=== PATIENT | female | born 1945 | race American Indian/Alaskan Native ===

== ENCOUNTER 2019-06-04 12:09 | Emergency (ER) | payer MEDICARE ==
[2019-06-04 13:25] VITALS: BP 129/76
--- NOTE | 2019-06-04 13:25 | Event Note ---
ED Screening Note ED Screening Note: generalized abd pain for two days no appetite +nausea no vomiting, no diarrhea normal bm yesterday PMHx DM no allergies to meds This initial assessment/diagnostic orders/clinical plan/treatment(s) is/are subject to change based on patients health status, clinical progression and re- assessment by fellow clinical providers in the ED. Further treatment and workup at subsequent clinical providers discretion. Patient/guardian urged not to elope from the ED as their condition may be serious if not clinically assessed and managed. Initial orders include: labs, UA, XR abd
[2019-06-04 14:07] LABS: Basophils % (Auto) 0.6 % (0.0-1.8); Eosinophils # (Auto) 0.1 K/mm3 (0.0-0.4); Eosinophils % (Auto) 1.6 % (0.0-4.3); Hematocrit 38.2 % (30.3-42.9); Hemoglobin 12.7 gm/dl (10.1-14.3); Lymphocytes # (Auto) 2.2 K/mm3 (1.2-5.4); Lymphocytes % (Auto) 26.2 % (13.4-35.0); Mean Corpuscular HGB Conc 33 % (30-34); Mean Corpuscular Volume 80 fl (79-97); Monocytes # (Auto) 0.6 K/mm3 (0.0-0.8); Monocytes % (Auto) 7.3 % (0.0-7.3); Platelet Count 380 K/mm3 (140-440); Red Blood Count 4.78 M/mm3 (3.65-5.03); Red Cell Distribution Width 14.4 % (13.2-15.2)
[2019-06-04 14:14] LABS: Bilirubin,Urine NEG (Negative); Blood,Urine NEG (Negative); Color,Urine Yellow (Yellow); Mucus,Urine FEW /HPF; Protein,Urine <15 mg/dL mg/dL (Negative); Urobilinogen,Urine < 2.0 mg/dL (<2.0)
--- NOTE | 2019-06-04 14:21 | XRay Report ---
ABDOMEN FLAT AND UPRIGHT HISTORY: abd pain COMPARISON: None. TECHNIQUE: Supine and upright radiographs of the abdomen obtained. FINDINGS: Bowel: Nonobstructive bowel pattern. No abnormal air-fluid level. A large volume of stool throughout the colon. No distended small bowel. No free intraperitoneal air. Calcifications: No suspicious calcifications. Osseous Structures: Changes in the right femoral head suggest avascular necrosis. No fracture. Additional findings: Degenerative change in the spine. IMPRESSION: 1. Abundant stool and no bowel obstruction or evidence of perforation. 2. 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 Signer Name: Keron Mccray MD Signed: 06/04/2019 2:17 PM Workstation Name: [id number]
[2019-06-04 14:28] LABS: Albumin 4.4 g/dL (3.9-5); Calcium 10.8 mg/dL (8.4-10.2)
[2019-06-04] MEDS ORDERED: NACL 0.9% 1000 ML 1,000 ML IV ONE (15:47)
[2019-06-04] MEDS ORDERED: MORPHINE IV ONE (15:47)
[2019-06-04] MEDS ORDERED: ZOFRAN IV ONE (15:47)
--- NOTE | 2019-06-04 17:08 | Emergency Department Report ---
ED Abdominal Pain HPI - General Chief Complaint: Abdominal Pain Stated Complaint: VOMIT/WEAK/STOMACH PAIN Time Seen by Provider: 06/04/19 13:23 Source: patient Mode of arrival: Ambulatory Limitations: No Limitations - History of Present Illness Initial Comments: This is a 72-year-old female nontoxic, well nourished in appearance, no acute signs of distress presents to the ED with c/o of nausea and vomiting and abdominal pain 2 weeks. Patient describes vomiting as food content and yellow gastric acid. Patient describes abdominal pain as cramping and aching with level of 3/10 diffuse. Patient denies chest pain, short of breath, fever, chills, headache, stiff neck, numbness or tingling. Patient denies any diarrhea or constipation. Patient denies any recent travels. Patient denies any allergies with PMH of HTN. MD Complaint: abdominal pain -: week(s) (2) Location: diffuse Radiation: none Migration to: no migration Severity: mild Severity scale (0 -10): 3 Quality: cramping, aching Consistency: constant Improves With: nothing Worsens With: nothing Associated Symptoms: nausea, vomiting. denies: diarrhea, fever, chills, constipation, dysuria, hematemesis, hematochezia, melena, hematuria, anorexia, syncope - Related Data Previous Rx's Medication Instructions Recorded Last Taken Type Acetaminophen/Codeine [Tylenol 1 tab PO Q6H PRN #12 tab 06/04/19 Unknown Rx /Codeine # 3 tab] Docusate Sodium [Colace] 100 mg PO BID PRN #15 capsule 06/04/19 Unknown Rx Ondansetron [Zofran Odt] 4 mg PO Q8HR PRN #12 tab.rapdis 06/04/19 Unknown Rx Allergies Allergy/AdvReac Type Severity Reaction Status Date / Time No Known Allergies Allergy Unverified 06/04/19 12:11 ED Review of Systems ROS: Stated complaint: VOMIT/WEAK/STOMACH PAIN Other details as noted in HPI Constitutional: denies: chills, fever Eyes: denies: eye pain, eye discharge, vision change ENT: denies: ear pain, throat pain Respiratory: denies: cough, shortness of breath, wheezing Cardiovascular: denies: chest pain, palpitations Endocrine: no symptoms reported Gastrointestinal: abdominal pain, nausea, vomiting. denies: diarrhea Genitourinary: denies: urgency, dysuria, discharge Musculoskeletal: denies: back pain, joint swelling, arthralgia Skin: denies: rash, lesions Neurological: denies: headache, weakness, paresthesias Psychiatric: denies: anxiety, depression Hematological/Lymphatic: denies: easy bleeding, easy bruising ED Past Medical Hx - Past Medical History Previous Medical History?: Yes Hx Hypertension: Yes Hx Diabetes: Yes - Surgical History Past Surgical History?: Yes Additional Surgical History: hysterectomy - Social History Smoking Status: Never Smoker Substance Use Type: None - Medications Home Medications: Home Medications Medication Instructions Recorded Confirmed Last Taken Type Acetaminophen/Codeine [Tylenol 1 tab PO Q6H PRN #12 tab 06/04/19 Unknown Rx /Codeine # 3 tab] Docusate Sodium [Colace] 100 mg PO BID PRN #15 capsule 06/04/19 Unknown Rx Ondansetron [Zofran Odt] 4 mg PO Q8HR PRN #12 tab.rapdis 06/04/19 Unknown Rx ED Physical Exam - General Limitations: No Limitations General appearance: alert, in no apparent distress - Head Head exam: Present: atraumatic, normocephalic - Neck Neck exam: Present: normal inspection, full ROM. Absent: tenderness, meningismus, lymphadenopathy - Respiratory Respiratory exam: Present: normal lung sounds bilaterally. Absent: respiratory distress, wheezes, rales, rhonchi, stridor, chest wall tenderness, accessory muscle use, decreased breath sounds, prolonged expiratory - Cardiovascular Cardiovascular Exam: Present: regular rate, normal rhythm, normal heart sounds. Absent: bradycardia, tachycardia, irregular rhythm, systolic murmur, diastolic murmur, rubs, gallop - GI/Abdominal GI/Abdominal exam: Present: soft, normal bowel sounds. Absent: distended, tenderness, guarding, rebound, rigid, diminished bowel sounds - Extremities Exam Extremities exam: Present: normal inspection, full ROM, normal capillary refill. Absent: tenderness - Back Exam Back exam: Present: normal inspection, full ROM. Absent: tenderness, CVA tenderness (R), CVA tenderness (L), muscle spasm, paraspinal tenderness, vertebral tenderness, rash noted - Neurological Exam Neurological exam: Present: alert, oriented X3, normal gait - Psychiatric Psychiatric exam: Present: normal affect, normal mood - Skin Skin exam: Present: warm, dry, intact, normal color. Absent: rash ED Course Vital Signs 06/04/19 06/04/19 13:23 16:11 Temperature 98.1 F 98.1 F Pulse Rate 88 88 Respiratory 16 16 Rate Blood Pressure 129/76 O2 Sat by Pulse 98 98 Oximetry - Reevaluation(s) Reevaluation #1: 06/04/19 17:06 Patient is speaking in full sentences with no signs of distress noted. - Consultations Consultation #1: 06/04/19 17:06 Patient has been consulted with Estuardo Adam about patient history, physical exam, and labs and if CT within normal limits patient can be discharged with nephrology follow-up. ED Medical Decision Making - Lab Data Result diagrams: 06/04/19 13:37 06/04/19 13:37 - Medical Decision Making This is a 73-year-old female that presents with abdominal pain, nausea and vomiting, with acute kidney damage. Patient is stable and was examined by me. Patient was consulted with Dr. Finley. There is no abdominal tenderness. Negative signs of symptoms of appendicitis. Labs obtained. UA obtained. CT of abdomen obtained and dictated by the radiologist. Patient is notified of the report with no questions noted by the patient. Vital signs are stable prior to discharge. Patient received medical treatment in the ED which patient stated symptoms has resovled and subsided. Was instructed note to operate any machinery due to possible drowsiness and stated someone will drive the patient home. A by mouth challenge has been obtained and patient tolerated well with no nausea vomiting. Patient was also instructed to Follow-up with a primary care doctor in 3-5 days or if symptoms worsen and continue return to emergency room as soon as possible. At time of discharge, the patient does not seem toxic or ill in appearance. No acute signs of distress noted. Patient agrees to discharge treatment plan of care. No further questions noted by the patient. Critical care attestation.: If time is entered above; I have spent that time in minutes in the direct care of this critically ill patient, excluding procedure time. ED Disposition Clinical Impression: Acute kidney injury, Gallstones Abdominal pain Qualifiers: Abdominal location: generalized Qualified Code(s): R10.84 - Generalized abdominal pain Nausea & vomiting Qualifiers: Vomiting type: unspecified Vomiting Intractability: non-intractable Qualified Code(s): R11.2 - Nausea with vomiting, unspecified Constipation Qualifiers: Constipation type: unspecified constipation type Qualified Code(s): K59.00 - Constipation, unspecified Disposition: DC-01 TO HOME OR SELFCARE Is pt being admited?: No Does the pt Need Aspirin: No Condition: Stable Instructions: Abdominal Pain (ED), Acute Nausea and Vomiting (ED) Additional Instructions: Follow-up with a primary care and nephrology doctor in 2 days or if symptoms worsen and continue return to emergency room as soon as possible. Prescriptions: Docusate Sodium [Colace] 100 mg PO BID PRN #15 capsule PRN Reason: Constipation Acetaminophen/Codeine [Tylenol /Codeine # 3 tab] 1 tab PO Q6H PRN #12 tab PRN Reason: Pain , Severe (7-10) Ondansetron [Zofran Odt] 4 mg PO Q8HR PRN #12 tab.rapdis PRN Reason: Nausea Referrals: PRIMARY CAREMD [Primary Care Provider] - 3-5 Days [facility] [Outside] - 3-5 Days [facility] [Outside] - 3-5 Days JOSE ALBERTO TRINH MD [Staff Physician] - 2-3 Days LUTHER WICK MD [Staff Physician] - 2-3 Days
--- NOTE | 2019-06-04 17:58 | Cat Scan Report ---
CT abdomen pelvis wo con INDICATION: abd pain. TECHNIQUE: All CT scans at this location are performed using the following dose modulation technique: Automated exposure control. CONTRAST: None. COMPARISON: None available. CT ABDOMEN: Evaluation of the parenchymal organs demonstrates bilateral renal cysts and mild chronic appearing fullness of the renal collecting systems and ureters. Cortical atrophy is greater on the ri ght. The left kidney contains 2 nonobstructing stones with the larger measuring 4 mm. The remaining p arenchymal organs are unremarkable. Negative for abdominal mass, fluid or inflammation. Colonic stool is moderate. The gallbladder is distended and contains layering stones. A fat-containing umbilical hernia is small . CT PELVIS: Moderate bladder distention. Negative for mass, fluid or inflammation. IMPRESSION: 1. Distended gallbladder containing stones. Negative for significant wall thickening. 2. Suspect chronic dilatation of the bladder with resultant dilatation of the upper renal collecting systems. 3. Renal cysts, right renal cortical scarring and left nonobstructing stones. 4. Moderate colonic stool. Signer Name: Tristin Blakely MD Signed: 06/04/2019 5:53 PM Workstation Name: [id number]
== END 2019-06-04 16:11 | disposition home or self-care (01) ==
LOC: ED 12:09
DX: N17.9 Acute kidney failure, unspecified (principal); K80.80 Other cholelithiasis without obstruction; K59.00 Constipation, unspecified; I10 Essential (primary) hypertension; E11.9 Type 2 diabetes mellitus without complications; Z79.899 Other long term (current) drug therapy; Z90.710 Acquired absence of both cervix and uterus
CPT/HCPCS: 36415; 74019; 74176; 80053; 81001; 83690; 85025; 96361; 96374; 96375; 99284; J2270; J2405; J7030

== ENCOUNTER 2019-11-19 08:59 | Emergency (ER) | payer MEDICARE ==
--- NOTE | 2019-11-19 10:28 | Emergency Department Report ---
<SACHA CIFUENTES - Last Filed: 11/19/19 14:18> ED General Adult HPI - General Chief complaint: Extremity Problem,Nontraumatic Stated complaint: LEFT KNEE PAIN Time Seen by Provider: 11/19/19 10:13 Source: patient Mode of arrival: Wheelchair Limitations: No Limitations - History of Present Illness Initial comments: The patient presents to the emergency department the chief complaint of left knee pain that started on Tuesday night. The patient denies acute injury or trauma to her left knee. Patient describes the pain as sharp in nature made worse with movement. Patient denies any radiation of the pain on my history and physical. Patient denies fever, shortness breath, abdominal pain, chest pain. -: Sudden Location: lower extremity Radiation: non-radiation Severity scale (0 -10): 8 Quality: sharp Consistency: constant Improves with: none Worsens with: none Associated Symptoms: denies other symptoms Treatments Prior to Arrival: none - Related Data Previous Rx's Medication Instructions Recorded Last Taken Type Acetaminophen/Codeine [Tylenol 1 tab PO Q6H PRN #12 tab 06/04/19 Unknown Rx /Codeine # 3 tab] Docusate Sodium [Colace] 100 mg PO BID PRN #15 capsule 06/04/19 Unknown Rx Ondansetron [Zofran Odt] 4 mg PO Q8HR PRN #12 tab.rapdis 06/04/19 Unknown Rx Ibuprofen [Motrin] 600 mg PO Q8H PRN #20 tablet 11/19/19 Unknown Rx traMADoL [Ultram] 50 mg PO Q6HR PRN #24 tablet 11/19/19 Unknown Rx Allergies Allergy/AdvReac Type Severity Reaction Status Date / Time No Known Allergies Allergy Unverified 06/04/19 12:11 ED Review of Systems Constitutional: denies: chills, fever Eyes: denies: eye pain, eye discharge, vision change ENT: denies: ear pain, throat pain Respiratory: denies: cough, shortness of breath, wheezing Cardiovascular: denies: chest pain, palpitations Endocrine: no symptoms reported Gastrointestinal: denies: abdominal pain, nausea, diarrhea Genitourinary: denies: urgency, dysuria, discharge Musculoskeletal: other (left knee pain). denies: back pain, joint swelling, arthralgia Skin: denies: rash, lesions Neurological: denies: headache, weakness, paresthesias Psychiatric: denies: anxiety, depression Hematological/Lymphatic: denies: easy bleeding, easy bruising ED Past Medical Hx - Past Medical History Previous Medical History?: Yes Hx Hypertension: Yes Hx Diabetes: Yes Hx Renal Disease: Yes - Surgical History Past Surgical History?: Yes Additional Surgical History: hysterectomy - Social History Smoking Status: Never Smoker Substance Use Type: None - Medications Home Medications: Home Medications Medication Instructions Recorded Confirmed Last Taken Type Acetaminophen/Codeine [Tylenol 1 tab PO Q6H PRN #12 tab 06/04/19 Unknown Rx /Codeine # 3 tab] Docusate Sodium [Colace] 100 mg PO BID PRN #15 capsule 06/04/19 Unknown Rx Ondansetron [Zofran Odt] 4 mg PO Q8HR PRN #12 tab.rapdis 06/04/19 Unknown Rx Ibuprofen [Motrin] 600 mg PO Q8H PRN #20 tablet 11/19/19 Unknown Rx traMADoL [Ultram] 50 mg PO Q6HR PRN #24 tablet 11/19/19 Unknown Rx ED Physical Exam - General Limitations: No Limitations General appearance: alert, in no apparent distress - Head Head exam: Present: atraumatic, normocephalic - Eye Eye exam: Present: normal appearance, PERRL, EOMI - ENT ENT exam: Present: mucous membranes moist - Neck Neck exam: Present: normal inspection - Respiratory Respiratory exam: Present: normal lung sounds bilaterally. Absent: respiratory distress - Cardiovascular Cardiovascular Exam: Present: regular rate, normal rhythm. Absent: systolic murmur, diastolic murmur, rubs, gallop - GI/Abdominal GI/Abdominal exam: Present: soft, normal bowel sounds. Absent: distended, tenderness - Extremities Exam Extremities exam: Present: other (There is effusion of the left knee with warmth to touch no surrounding cellulitis) - Back Exam Back exam: Present: normal inspection - Neurological Exam Neurological exam: Present: alert, oriented X3, CN II-XII intact. Absent: motor sensory deficit - Psychiatric Psychiatric exam: Present: normal affect, normal mood - Skin Skin exam: Present: warm, dry, intact, normal color. Absent: rash - Joint Aspiration/Injection Consent Obtained: verbal consent Time Out Performed: Yes Indications: R/O septic arthritis Side of Body: left Joint Aspirated: knee Skin Prep: Povidone-Iodine1% Local Anesthesia Used: Bupivicaine 0.5% Needle Size Used: 20G Syringe Size Used: Other (60) Total Fluid Obtained (mls): 120 Patient Tolerated Procedure: well Complications: none ED Medical Decision Making - Lab Data Result diagrams: 11/19/19 10:27 11/19/19 10:27 Lab Results 11/19/19 11/19/19 Range/Units 10:27 10:27 WBC 9.4 (4.5-11.0) K/mm3 RBC 4.60 (3.65-5.03) M/mm3 Hgb 12.0 (10.1-14.3) gm/dl Hct 35.8 (30.3-42.9) % MCV 78 L (79-97) fl MCH 26 L (28-32) pg MCHC 34 (30-34) % RDW 13.7 (13.2-15.2) % Plt Count 271 (140-440) K/mm3 Lymph % (Auto) 15.9 (13.4-35.0) % Hawkins % (Auto) 11.1 H (0.0-7.3) % Eos % (Auto) 0.1 (0.0-4.3) % Baso % (Auto) 0.7 (0.0-1.8) % Lymph # 1.5 (1.2-5.4) K/mm3 Hawkins # 1.0 H (0.0-0.8) K/mm3 Eos # 0.0 (0.0-0.4) K/mm3 Baso # 0.1 (0.0-0.1) K/mm3 Seg Neutrophils % 72.2 H (40.0-70.0) % Seg Neutrophils # 6.8 (1.8-7.7) K/mm3 ESR 49 (0-20) mm/Hr Sodium 140 (137-145) mmol/L Potassium 3.2 L (3.6-5.0) mmol/L Chloride 99.3 (98-107) mmol/L Carbon Dioxide 26 (22-30) mmol/L Anion Gap 18 mmol/L BUN 19 H (7-17) mg/dL Creatinine 1.0 (0.7-1.2) mg/dL Estimated GFR > 60 ml/min BUN/Creatinine Ratio 19 % Glucose 207 H (65-100) mg/dL Calcium 10.3 H (8.4-10.2) mg/dL Total Bilirubin 0.90 (0.1-1.2) mg/dL AST 11 (5-40) units/L ALT 10 (7-56) units/L Alkaline Phosphatase 104 (35-129) units/L Total Protein 7.5 (6.3-8.2) g/dL Albumin 3.5 L (3.9-5) g/dL Albumin/Globulin Ratio 0.9 % - Medical Decision Making Patient was very anxious and was not able to tolerate the aspiration so the patient was given Ativan ED Disposition Clinical Impression: Knee effusion, left, Inflammatory arthritis Disposition: TO HOME OR SELFCARE Is pt being admited?: No Does the pt Need Aspirin: No Condition: Stable Instructions: Knee Effusion (ED) Additional Instructions: Take the medication as prescribed. Follow-up with your doctor or doctor/clinic provided. Return if symptoms worsen as indicated by your discharge instructions. Prescriptions: Ibuprofen [Motrin] 600 mg PO Q8H PRN #20 tablet PRN Reason: Pain traMADoL [Ultram] 50 mg PO Q6HR PRN #24 tablet PRN Reason: Pain Referrals: [facility] MD FABRICIO [Primary Care Provider] - 3-5 Days KRISTIN CANO MD [Staff Physician] - 3-5 Days (orthopedic ) Time of Disposition: 14:17 <VERONIQUE GRAJEDA - Last Filed: 11/19/19 16:36> ED Review of Systems ROS: Stated complaint: LEFT KNEE PAIN Other details as noted in HPI ED Course Vital Signs 11/19/19 11/19/19 11/19/19 09:16 10:06 12:45 Temperature 99.0 F Pulse Rate 73 65 71 Respiratory 20 16 18 Rate Blood Pressure 152/132 Blood Pressure 159/78 154/74 [Right] O2 Sat by Pulse 97 95 95 Oximetry - Reevaluation(s) Reevaluation #1: 11/19/19 15:40 Patient's left knee is warm to touch with some residual swelling. Only able to flex knee 30 degrees. Unable to walk or bear weight secondary to pain and unable to walk more than 100 feet. Case discussed with Dr. Cano regarding interpretation of synovial fluid results and he is in agreement that results suggestive of inflammatory arthritis as opposed to septic arthritis. Glucose level in synovial fluid is pending and is a send out test. Patient also has a ESR less than 60 and a normal blood WBC count. Case management notified so that patient may be provided a wheelchair and assistance at home so she is unable to ambulate. Patient is also unable to use a walker or a cane. - Consultations Consultation #1: 11/19/19 15:[address] Cano orthopedic surgeon generation manager regarding synovial fluid analysis and he is in agreement that process is inflammatory. ED Medical Decision Making - Lab Data Result diagrams: 11/19/19 10:27 11/19/19 10:27 - Medical Decision Making Patient signed out to me by Dr. Cifuentes to follow-up on synovial fluid analysis. Results reviewed by Dr. Cifuentes and myself and discussed with Dr. Cano with diagnosis of inflammatory arthritis. Negative for septic arthritis. Case jose pabon consult obtained given patient's inability to ambulate 100 feet adn pt is unable to use a walker, or cane. Patient will have a wheelchair delivered tomorrow and home health services have been requested. 1 dose of po potassium provided for incidental hypokalemia Critical care attestation.: If time is entered above; I have spent that time in minutes in the direct care of this critically ill patient, excluding procedure time. ED Disposition Time of Disposition: 16:32
[2019-11-19 10:51] LABS: Basophils # (Auto) 0.1 K/mm3 (0.0-0.1); Basophils % (Auto) 0.7 % (0.0-1.8); Eosinophils % (Auto) 0.1 % (0.0-4.3); Hematocrit 35.8 % (30.3-42.9); Lymphocytes # (Auto) 1.5 K/mm3 (1.2-5.4); Lymphocytes % (Auto) 15.9 % (13.4-35.0); Mean Corpuscular HGB Conc 34 % (30-34); Mean Corpuscular Volume 78 fl (79-97); Monocytes % (Auto) 11.1 % (0.0-7.3); Platelet Count 271 K/mm3 (140-440); Red Cell Distribution Width 13.7 % (13.2-15.2)
[2019-11-19] MEDS ORDERED: BUPIVACAINE/PF (0.5%) 5 MG/1 ML 10 ML VIAL INFILTRATI NR (11:00)
[2019-11-19] MEDS ORDERED: LORazepam 2 MG/ML VIAL IV ONE (11:05)
[2019-11-19 11:07] LABS: Alanine Aminotransferase 10 units/L (7-56); Albumin 3.5 g/dL (3.9-5); BUN/Creatinine Ratio 19; Blood Urea Nitrogen 19 mg/dL (7-17); Calcium 10.3 mg/dL (8.4-10.2); Hemolysis Index 7
[2019-11-19 11:35] LABS: Erythrocyte Sedimentation Rate 49 mm/Hr (0-20)
[2019-11-19 12:45] VITALS: BP 154/74
[2019-11-19 15:11] LABS: Total Cells Counted 100 /mm3
[2019-11-19] MEDS ORDERED: POTASSIUM CHLORIDE ER 20 MEQ TAB PO ONE (16:36)
== END 2019-11-19 17:24 | disposition home or self-care (01) ==
LOC: ED 08:59
DX: M13.862 Other specified arthritis, left knee (principal); M25.462 Effusion, left knee; I12.9 Hypertensive chronic kidney disease with stage 1 through stage 4 chronic kidney disease, or unspecified chronic kidney disease; E11.22 Type 2 diabetes mellitus with diabetic chronic kidney disease; N18.9 Chronic kidney disease, unspecified; Z90.710 Acquired absence of both cervix and uterus; Z79.899 Other long term (current) drug therapy
CPT/HCPCS: 29505; 36415; 80053; 82947; 85025; 85652; 87116; 89051; 96374; 99283; J2060

== ENCOUNTER 2019-12-20 15:14 | Emergency (ER) | payer MEDICARE ==
[2019-12-20 15:33] VITALS: BP 185/88
--- NOTE | 2019-12-20 16:44 | Emergency Department Report ---
ED Lower Extremity HPI - General Chief Complaint: Pain General Stated Complaint: STOMACH PAIIN, Time Seen by Provider: 12/20/19 16:28 Source: patient Mode of arrival: Ambulatory Limitations: No Limitations - History of Present Illness Initial Comments: Mrs. Mcclure is a 74-year-old male female with history of diabetes hypertension presents with left knee pain and swelling for several months. Also lower back pain for several months. History obtained from patient and daughter. Daughter was concerned the patient had pain in spite tramadol. PCP has initiated outpatient work-up. There is a concern for stomach cancer. Daughter is primary caregiver. Patient has bilateral flank pain appears to be mild achy no history of recent falls. According to electronic record, joint aspiration performed to rule out septic arthritis. Diagnosis upon discharge in November inflammatory arthritis of the left knee MD Complaint: other (left knee pain swelling) -: Gradual, month(s) (Several months) Injury: Knee: Left Severity: moderate Improves With: nothing Worsens With: weight bearing Associated Symptoms: swelling - Related Data Previous Rx's Medication Instructions Recorded Last Taken Type Acetaminophen/Codeine [Tylenol 1 tab PO Q6H PRN #12 tab 06/04/19 Unknown Rx /Codeine # 3 tab] Docusate Sodium [Colace] 100 mg PO BID PRN #15 capsule 06/04/19 Unknown Rx Ondansetron [Zofran Odt] 4 mg PO Q8HR PRN #12 tab.rapdis 06/04/19 Unknown Rx Ibuprofen [Motrin] 600 mg PO Q8H PRN #20 tablet 11/19/19 Unknown Rx traMADoL [Ultram] 50 mg PO Q6HR PRN #24 tablet 11/19/19 Unknown Rx traMADoL [Ultram 50 MG tab] 50 mg PO Q6HR PRN #30 tablet 12/20/19 Unknown Rx Allergies Allergy/AdvReac Type Severity Reaction Status Date / Time No Known Allergies Allergy Verified 12/20/19 15:16 ED Review of Systems ROS: Stated complaint: STOMACH PAIIN, Other details as noted in HPI Comment: All other systems reviewed and negative Constitutional: denies: fever, malaise Respiratory: denies: cough, shortness of breath Cardiovascular: denies: chest pain ED Past Medical Hx - Past Medical History Previous Medical History?: Yes Hx Hypertension: Yes Hx Diabetes: Yes Hx Renal Disease: Yes - Surgical History Additional Surgical History: hysterectomy - Social History Smoking Status: Never Smoker - Medications Home Medications: Home Medications Medication Instructions Recorded Confirmed Last Taken Type Acetaminophen/Codeine [Tylenol 1 tab PO Q6H PRN #12 tab 06/04/19 Unknown Rx /Codeine # 3 tab] Docusate Sodium [Colace] 100 mg PO BID PRN #15 capsule 06/04/19 Unknown Rx Ondansetron [Zofran Odt] 4 mg PO Q8HR PRN #12 tab.rapdis 06/04/19 Unknown Rx Ibuprofen [Motrin] 600 mg PO Q8H PRN #20 tablet 11/19/19 Unknown Rx traMADoL [Ultram] 50 mg PO Q6HR PRN #24 tablet 11/19/19 Unknown Rx traMADoL [Ultram 50 MG tab] 50 mg PO Q6HR PRN #30 tablet 12/20/19 Unknown Rx ED Physical Exam - General Limitations: No Limitations General appearance: alert, in no apparent distress, other (Pleasant no acute distress) - Head Head exam: Present: atraumatic, normocephalic - Eye Eye exam: Present: normal appearance - ENT ENT exam: Present: mucous membranes moist - Neck Neck exam: Present: normal inspection, full ROM - Respiratory Respiratory exam: Present: normal lung sounds bilaterally. Absent: respiratory distress, wheezes, rales, rhonchi - Cardiovascular Cardiovascular Exam: Present: regular rate, normal rhythm, normal heart sounds. Absent: systolic murmur, diastolic murmur, rubs, gallop - GI/Abdominal GI/Abdominal exam: Present: soft, normal bowel sounds. Absent: distended, guarding, rebound - Extremities Exam Extremities exam: Present: other (Left knee: Flesh-colored mild edema full range of motion no erythema no warmth) - Back Exam Back exam: Present: normal inspection, full ROM. Absent: tenderness, CVA tenderness (R), CVA tenderness (L) - Neurological Exam Neurological exam: Present: alert, oriented X3 - Psychiatric Psychiatric exam: Present: normal affect, normal mood - Skin Skin exam: Present: warm, dry, intact, normal color. Absent: rash ED Course Vital Signs 12/20/19 15:18 Temperature 97.8 F Pulse Rate 85 Respiratory 20 Rate Blood Pressure 185/88 O2 Sat by Pulse 95 Oximetry ED Lower Extremity MDM - Medical Decision Making Mrs. Mcclure presents with left knee pain of several months recent evaluation ruled out septic arthritis. I suspect gouty arthropathy versus osteoarthritis. Prescribed tramadol for pain control. Nonspecific back pain different diagnosis includes spinal stenosis degenerative disc disease Strongly encouraged daughter to continue work-up via PCP. Also referred to orthopedic surgeon. Critical care attestation.: If time is entered above; I have spent that time in minutes in the direct care of this critically ill patient, excluding procedure time. ED Disposition Clinical Impression: Left knee pain, Back pain Disposition: TO HOME OR SELFCARE Is pt being admited?: No Does the pt Need Aspirin: No Condition: Stable Instructions: Knee Effusion (ED) Prescriptions: traMADoL [Ultram 50 MG tab] 50 mg PO Q6HR PRN #30 tablet PRN Reason: Pain Referrals: KRISTIN ROMAN MD [Staff Physician] - 3-5 Days Forms: Accompanied Note
== END 2019-12-20 16:56 | disposition home or self-care (01) ==
LOC: ED 15:14
DX: M25.562 Pain in left knee (principal); M54.5 Low back pain; M79.89 Other specified soft tissue disorders; I10 Essential (primary) hypertension; E11.9 Type 2 diabetes mellitus without complications
CPT/HCPCS: 99281

== ENCOUNTER 2020-01-01 14:09 | Emergency (ER) | payer MEDICARE ==
[2020-01-01] MEDS ORDERED: SODIUM CHLORIDE 0.9% 1000 ML 1,000 ML IV ONE (16:43)
--- NOTE | 2020-01-01 16:47 | Emergency Department Report ---
ED Back Pain/Injury HPI - General Chief Complaint: Back Pain/Injury Stated Complaint: ABD PAIN/CANT WALK/V/ Time Seen by Provider: 01/01/20 16:35 Source: patient, family, old records reviewed Limitations: No Limitations - History of Present Illness Initial Comments: Mrs. Mcclure is a 74-year-old female with history of diabetes mellitus arthritis who presents with severe back pain for several weeks. I evaluated this patient 12 days ago for left knee pain on December 19. Since that ED encounter she has been unable to walk. Severe back pain in spite tramadol. Her primary care physician at that time had initiated work-up for possible stomach cancer. Daughter is quite frustrated because she does not have any diagnosis while her mother's health has declined. Daughter took patient to orthopedic surgeon today. According to radiographs results, orthopedic surgeon was concerned for possible malignancy involving the vertebral bones. Consequently MRI has been ordered in the outpatient setting. 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 Otherwise she has no other complaints MD Complaint: back pain -: Gradual, week(s) (2 weeks) Similar Symptoms Previously: Yes Place: home Radiation: none Severity: severe Consistency: constant Worsens With: movement Context: other (Decline in health over several weeks) Associated Symptoms: difficulty walking - Related Data Previous Rx's Medication Instructions Recorded Last Taken Type Acetaminophen/Codeine [Tylenol 1 tab PO Q6H PRN #12 tab 06/04/19 Unknown Rx /Codeine # 3 tab] Docusate Sodium [Colace] 100 mg PO BID PRN #15 capsule 06/04/19 Unknown Rx Ondansetron [Zofran Odt] 4 mg PO Q8HR PRN #12 tab.rapdis 06/04/19 Unknown Rx Ibuprofen [Motrin] 600 mg PO Q8H PRN #20 tablet 11/19/19 Unknown Rx traMADoL [Ultram] 50 mg PO Q6HR PRN #24 tablet 11/19/19 Unknown Rx traMADoL [Ultram 50 MG tab] 50 mg PO Q6HR PRN #30 tablet 12/20/19 Unknown Rx HYDROcodone/APAP 5-325 [Rockwood 1 each PO Q6HR PRN #20 tablet 01/01/20 Unknown Rx 5/325] Allergies Allergy/AdvReac Type Severity Reaction Status Date / Time No Known Allergies Allergy Verified 12/20/19 15:16 ED Review of Systems ROS: Stated complaint: ABD PAIN/CANT WALK/V/ Other details as noted in HPI Comment: All other systems reviewed and negative Constitutional: malaise. denies: fever Respiratory: denies: cough, shortness of breath Gastrointestinal: denies: abdominal pain Musculoskeletal: back pain, joint swelling ED Past Medical Hx - Past Medical History Previous Medical History?: Yes Hx Hypertension: Yes Hx Diabetes: Yes Hx Renal Disease: Yes Hx Dementia: Yes - Surgical History Past Surgical History?: Yes Additional Surgical History: hysterectomy - Social History Smoking Status: Never Smoker Substance Use Type: None - Medications Home Medications: Home Medications Medication Instructions Recorded Confirmed Last Taken Type Acetaminophen/Codeine [Tylenol 1 tab PO Q6H PRN #12 tab 06/04/19 Unknown Rx /Codeine # 3 tab] Docusate Sodium [Colace] 100 mg PO BID PRN #15 capsule 06/04/19 Unknown Rx Ondansetron [Zofran Odt] 4 mg PO Q8HR PRN #12 tab.rapdis 06/04/19 Unknown Rx Ibuprofen [Motrin] 600 mg PO Q8H PRN #20 tablet 11/19/19 Unknown Rx traMADoL [Ultram] 50 mg PO Q6HR PRN #24 tablet 11/19/19 Unknown Rx traMADoL [Ultram 50 MG tab] 50 mg PO Q6HR PRN #30 tablet 12/20/19 Unknown Rx HYDROcodone/APAP 5-325 [[place] 1 each PO Q6HR PRN #20 tablet 01/01/20 Unknown Rx 5/325] ED Physical Exam - General Limitations: No Limitations General appearance: alert, in no apparent distress - Head Head exam: Present: atraumatic, normocephalic - Eye Eye exam: Present: normal appearance - ENT ENT exam: Present: mucous membranes moist - Neck Neck exam: Present: normal inspection, full ROM - Respiratory Respiratory exam: Present: normal lung sounds bilaterally. Absent: respiratory distress, wheezes, rales - Cardiovascular Cardiovascular Exam: Present: normal rhythm, tachycardia, normal heart sounds. Absent: systolic murmur, diastolic murmur, rubs, gallop - GI/Abdominal GI/Abdominal exam: Present: soft, normal bowel sounds. Absent: distended, tenderness, guarding, rebound - Extremities Exam Extremities exam: Present: other (Left knee: Mildly edematous without erythema or tenderness) - Back Exam Back exam: Present: normal inspection - Neurological Exam Neurological exam: Present: alert, other (Oriented to name only) - Psychiatric Psychiatric exam: Present: normal affect, normal mood - Skin Skin exam: Present: warm, dry, intact, normal color. Absent: rash ED Course Vital Signs 01/01/20 01/01/20 01/01/20 14:16 18:45 19:10 Temperature 98.0 F 98.9 F Pulse Rate 116 H 87 Respiratory 22 18 18 Rate Blood Pressure 162/103 Blood Pressure 206/101 [Right] O2 Sat by Pulse 97 97 Oximetry ED Medical Decision Making - Lab Data Result diagrams: 01/01/20 16:47 01/01/20 16:47 - EKG Data 01/01/20 17:55 EKG obtained 1745 Sinus tachycardia rate 115 bpm normal axis normal intervals no ST elevation positive LVH nonischemic T wave pattern - Radiology Data Radiology results: report reviewed CT C/A/P: thyroid ultrasound, cholelithiasis, enlarged pulmonary arteries pulmonary hypertension, hiatal hernia - Medical Decision Making Mrs. Mcclure presents with 2 weeks of failure to thrive back pain left knee pain. Pertinent positives: Increased BUN hyperglycemia dehydration. Patient was given IV hydration and pain control in emergency department. I do not have a source for infection. Last month septic arthritis was ruled out with arthrocentesis. I recommended evaluation by PCP and oncologist. Patient has leukocytosis must consider hematological malignancy. Daughter explains that patient has been evaluated by GI physician for possible malignancy. I have prescribed [place]wood for pain. Discharged home. Vital Signs (72 hours) 01/01/20 01/01/20 01/01/20 14:16 18:45 19:10 Temperature 98.0 F 98.9 F Pulse Rate 116 H 87 Respiratory 22 18 18 Rate Blood Pressure 162/103 Blood Pressure 206/101 [Right] O2 Sat by Pulse 97 97 Oximetry Critical care attestation.: If time is entered above; I have spent that time in minutes in the direct care of this critically ill patient, excluding procedure time. ED Disposition Clinical Impression: Failure to thrive, Left knee pain, Back pain, Dehydration Disposition: DC-01 TO HOME OR SELFCARE Is pt being admited?: No Does the pt Need Aspirin: No Condition: Stable Additional Instructions: Please see our bilingual medical assistant oncologist for the elevated white blood cell count Prescriptions: HYDROcodone/APAP 5-325 [Rockwood 5/325] 1 each PO Q6HR PRN #20 tablet PRN Reason: Pain Referrals: PRIMARY CAREMD [Primary Care Provider] - 3-5 Days VALENTÍN PEREZ MD [Staff Physician] - 3-5 Days
[2020-01-01 17:10] LABS: Basophils # (Auto) 0.1 K/mm3 (0.0-0.1); Basophils % (Auto) 0.3 % (0.0-1.8); Eosinophils % (Auto) 0.1 % (0.0-4.3); Hematocrit 38.7 % (30.3-42.9); Hemoglobin 13.2 gm/dl (10.1-14.3); Lymphocytes % (Auto) 6.7 % (13.4-35.0); Mean Corpuscular HGB Conc 34 % (30-34); Mean Corpuscular Volume 75 fl (79-97); Monocytes # (Auto) 0.7 K/mm3 (0.0-0.8); Monocytes % (Auto) 4.4 % (0.0-7.3); Platelet Count 469 K/mm3 (140-440); Red Blood Count 5.17 M/mm3 (3.65-5.03)
[2020-01-01 17:30] LABS: Alanine Aminotransferase 9 units/L (7-56); Albumin 3.7 g/dL (3.9-5); BUN/Creatinine Ratio 27; Blood Urea Nitrogen 30 mg/dL (7-17); Calcium 11.9 mg/dL (8.4-10.2); Hemolysis Index 3
[2020-01-01 17:36] LABS: Bilirubin,Direct < 0.2 mg/dL (0-0.2)
[2020-01-01] MEDS ORDERED: ONDANSETRON 4 MG/2 ML INJ IV ONE (18:05)
[2020-01-01] MEDS ORDERED: MORPHINE 2 MG/1 ML INJ IV ONE (18:05)
[2020-01-01 18:54] LABS: Bilirubin,Urine NEG (Negative); Blood,Urine NEG (Negative); Color,Urine Yellow (Yellow); Urobilinogen,Urine < 2.0 mg/dL (<2.0)
[2020-01-01 18:55] LABS: Mucus,Urine FEW /HPF
--- NOTE | 2020-01-01 19:20 | Cat Scan Report ---
CT THORACIC SPINE WITHOUT CONTRAST INDICATION / CLINICAL INFORMATION: severe back pain decline in health. TECHNIQUE: Axial CT images were obtained through the thoracic spine. Sagittal and coronal reformatted images wer e produced. All CT scans at this location are performed using CT dose reduction for ALARA by means of automated exposure control. COMPARISON: None available. FINDINGS: Since these images are obtained following CT scan of the abdomen and pelvis, there is iodinated contr ast in the intravascular space. VERTEBRAE: No significant abnormality. ALIGNMENT: No significant abnormality. DISC SPACES: Degenerative disc disease seen at T4-T5, T5-T6, T6-T7, T8-T9, T9-T10 and T10-T11 disc le vels. Minimal spondylotic changes are seen at T3-T4 disc level on the right side, T4-T5 disc level bi laterally, T6-T7 disc level more to the right side, T7-T8 disc level bilaterally, T8-T9 disc level mo re to the left side, T9-T10 disc level more to the left side and at T10 disc level without lateraliza tion. Neuroforamina are not compromised. FACET and COSTOVERTEBRAL JOINTS: Mild facet joint hypertrophic changes more on the left side at T10-T 11 disc level CERVICOTHORACIC JUNCTION:No significant abnormality. SPINAL CANAL: No significant abnormality. PARASPINAL SOFT TISSUES: No significant abnormality. ADDITIONAL FINDINGS: Nonobstructive left renal calculus LUNGS: No significant abnormality of visualized lungs. IMPRESSION: Minimal spondylotic changes at the midthoracic level; neuroforamina are normal Signer Name: Chip Christopher MD Signed: 01/01/2020 7:16 PM Workstation Name: [id number]
--- NOTE | 2020-01-01 19:20 | Cat Scan Report ---
CT LUMBAr SPINE without contrast INDICATION: severe back pain failure to thrive. TECHNIQUE: Axial CT images of the lumbar spine were obtained. Sagittal and coronal reformatted images were prod uced. All CT scans at this location are performed using CT dose reduction for ALARA by means of autom ated exposure control. COMPARISON: No previous exams available for comparison. FINDINGS: ALIGNMENT: This mild curvature of the lumbar spine, convex toward the left. Additionally, there is sl ight anterolisthesis at L4-5 with advanced degenerative disc changes, greater on the left. VERTEBRAE: There is a defect involving the inferior endplate of L3 with adjacent sclerosis at. This f inding would appear most consistent with Schmorl's node at. There are notable degenerative endplate c hanges at L4-5 and greater on the right at L2-3. Significant findings are also noted anteriorly at L5 -S1. However, there is no definitive CT evidence of acute compression fracture involving the lumbar s pine. INTRAVERTEBRAL DISCS: The spondylosis and facet joint changes at L5-S1 result in neural from narrowin g with encroachment on the exiting L5 nerve root sheaths, greater on the left. Additionally, there is encroachment on the left lateral recess. The spondylosis and facet joint hypertrophy at L4-L5 result in mild to moderate degree of spinal sten osis. Additionally, there is moderate right and mild left neural foraminal narrowing. The spondylosis and ligamentum flavum hypertrophy at L3-4 also appear to result in mild to moderate s tammi stenosis and foraminal narrowing, greater on the right. The disc bulge and facet joint hypertro phy at L2-3 mildly deform the thecal sac at. There is mild right neural foraminal narrowing. There is no significant stenosis at L1-2. PARASPINAL SOFT TISSUES: The CT abdomen will be dictated separately. ADDITIONAL FINDINGS: There is a somewhat linear sclerotic lesion within the left sacral alar measurin g 1.4 cm transversely which is nonspecific though may reflect incidental enostosis given the solitary finding. IMPRESSION: 1. There is mild levoscoliosis of the lumbar spine with multilevel advanced degenerative the changes as detailed above. Signer Name: Eric Phillips MD Signed: 01/01/2020 7:16 PM Workstation Name: [id number]
--- NOTE | 2020-01-01 19:33 | Cat Scan Report ---
CT CHEST, ABDOMEN, AND PELVIS WITH IV CONTRAST INDICATION / CLINICAL INFORMATION: MAIN: possible malignancy severe back pain. TECHNIQUE: Axial CT images were obtained through the chest, abdomen, and pelvis after 100 mL Omnipaque 300 [address]. All CT scans at this location are performed using CT dose reduction for ALARA by means of aut omated exposure control. COMPARISON: CT scan 06/04/2019 FINDINGS: HEART: Normal heart size. No pericardial effusion. The urinary arteries are enlarged, with the pulmon harman trunk measuring about 3.6 cm in transverse dimension. THORACIC AORTA: No significant abnormality. MEDIASTINUM and DALILA: Tiny hiatal hernia. LUNGS: No acute air space or interstitial disease. PLEURA: No pleural fluid. No pneumothorax. ADDITIONAL CHEST FINDINGS: There are 2 nodules in the left thyroid lobe, each measuring at least 1.5- 2 cm. LIVER: No significant abnormality. GALLBLADDER: Sludge and/or small stones layer dependently in the gallbladder. No evidence of acute ch olecystitis. BILE DUCTS: No significant abnormality. PANCREAS: No significant abnormality. SPLEEN: No significant abnormality. ADRENALS: No significant abnormality. RIGHT KIDNEY and URETER: Simple cyst of about 2.5 cm diameter in the interpolar region and additional tiny hypoattenuating lesions that are probably also simple cysts. No acute abnormality. No solid mas s. LEFT KIDNEY and URETER: There are couple of simple cysts as well as several subcentimeter hypoattenua ting lesions too small for complete characterization. No solid mass or acute abnormality. STOMACH and SMALL BOWEL: No significant abnormality. COLON: There is hyperattenuating fecal material, suggestive of desiccation. APPENDIX: No significant abnormality. PERITONEUM: No free fluid. No free air. No fluid collection. LYMPH NODES: No adenopathy. AORTA and ARTERIES: No significant abnormality. IVC and VEINS: No significant abnormality. URINARY BLADDER: No significant abnormality. REPRODUCTIVE ORGANS: Uterus is absent. No significant adnexal abnormality. ADDITIONAL FINDINGS: None. SKELETAL SYSTEM: Moderately advanced osteoarthrosis of the right hip and moderate degenerative disc d isease in the lumbar spine. No acute skeletal abnormality or suspicious bone lesion. IMPRESSION: 1. Consider thyroid ultrasound for further evaluation of the thyroid nodules, if not previously perf ormed. 2. Cholelithiasis. 3. Enlarged pulmonary arteries suggest underlying pulmonary hypertension. 4. Tiny hiatal hernia. Signer Name: Jimmy Brice MD Signed: 01/01/2020 7:29 PM Workstation Name: [id number]
[2020-01-01] MEDS ORDERED: HYDROcodone/ACETAMINOPHEN 5-325 MG TAB PO ONE (19:38)
[2020-01-01 20:56] VITALS: BP 175/79
== END 2020-01-01 21:27 | disposition home or self-care (01) ==
LOC: ED 14:09
DX: E86.0 Dehydration (principal); M54.89 Other dorsalgia; M25.562 Pain in left knee; R62.7 Adult failure to thrive; R10.9 Unspecified abdominal pain; I10 Essential (primary) hypertension; E11.9 Type 2 diabetes mellitus without complications; F03.90 Unspecified dementia, unspecified severity, without behavioral disturbance, psychotic disturbance, mood disturbance, and anxiety; Z90.710 Acquired absence of both cervix and uterus; Z79.899 Other long term (current) drug therapy
CPT/HCPCS: 36415; 71260; 72128; 72131; 74177; 80048; 80076; 81001; 82140; 83690; 85025; 87040; 93005; 93010; 96361; 96374; 96375; 99284; J2270; J2405; J7030; Q9967

== ENCOUNTER 2020-01-17 15:29 | Outpatient (CLI) | payer MEDICARE ==
--- NOTE | 2020-01-21 08:11 | XRay Report ---
SKELETAL SURVEY INDICATION / CLINICAL INFORMATION: Initial staging. COMPARISON: None available. FINDINGS: SKULL: No lytic or blastic lesion. C-SPINE: No lytic or blastic lesion. HUMERI: No lytic or blastic lesion. CHEST: No lytic or blastic lesion. T-SPINE: No lytic or blastic lesion. Mild mid thoracic spondylosis. L-SPINE: No lytic or blastic lesion. Mild lower lumbar spondylosis. PELVIS: No lytic or blastic lesion. FEMORA: No lytic or blastic lesion. Subchondral cyst in the right femoral head associated with modera te degenerative arthrosis. ADDITIONAL FINDINGS: None. IMPRESSION: 1. Negative skeletal survey. Signer Name: Ricardo Tijerina MD Signed: 01/21/2020 8:07 AM Workstation Name: [id number]
== END 2020-01-17 15:30 | disposition home or self-care (01) ==
LOC: SPVIMAG 15:29
PROVIDERS: ATTEND Internal Medicine Hematology & Oncology
DX: E88.09 Other disorders of plasma-protein metabolism, not elsewhere classified (principal); R53.1 Weakness; D64.9 Anemia, unspecified; R79.89 Other specified abnormal findings of blood chemistry; R63.4 Abnormal weight loss
CPT/HCPCS: 77074

== ENCOUNTER 2020-01-21 13:24 | Emergency (ER) | payer MEDICARE ==
[2020-01-21 14:32] LABS: Hematocrit 36.8 % (30.3-42.9); Mean Corpuscular HGB Conc 33 % (30-34); Mean Corpuscular Volume 75 fl (79-97); Platelet Count 319 K/mm3 (140-440); Red Blood Count 4.91 M/mm3 (3.65-5.03); Red Cell Distribution Width 15.4 % (13.2-15.2)
[2020-01-21 14:45] LABS: Albumin 3.4 g/dL (3.9-5); Calcium 10.6 mg/dL (8.4-10.2)
--- NOTE | 2020-01-21 15:27 | Emergency Department Report ---
HPI - General Chief Complaint: Medical Clearance Time Seen by Provider: 01/21/20 15:13 - HPI HPI: 74-year-old female presents to the emergency department from home, dropped off by her daughter, secondary to the patient not eating, losing weight, and devel oping bedsores. I spoke with the patient's daughter, Carrie, on the phone and she reiterates these concerns. She says that she is no longer able to care for her mother and is hoping for the patient to be admitted to the hospital and case management assistance in some type of alf placement. She says that they had some type of home health care in the past but "that did not work." Patient has a history of dementia, diabetes, hypertension. The patient herself has no complaints and says she is unsure why she is at the hospital. I reviewed the patient's chart and she has been here twice in December. The first time she was here for knee pain and the second time for back pain. The daughter says that she is due for a bone biopsy through the "[facility]" the next time she gets admitted for questionable vertebral malignancy. ED Past Medical Hx - Past Medical History Previous Medical History?: Yes Hx Hypertension: Yes Hx Diabetes: Yes Hx Renal Disease: Yes Hx Dementia: Yes - Surgical History Past Surgical History?: Yes Additional Surgical History: hysterectomy - Social History Smoking Status: Never Smoker Substance Use Type: None - Medications Home Medications: Home Medications Medication Instructions Recorded Confirmed Last Taken Type Acetaminophen/Codeine [Tylenol 1 tab PO Q6H PRN #12 tab 06/04/19 Unknown Rx /Codeine # 3 tab] Docusate Sodium [Colace] 100 mg PO BID PRN #15 capsule 06/04/19 Unknown Rx Ondansetron [Zofran Odt] 4 mg PO Q8HR PRN #12 tab.rapdis 06/04/19 Unknown Rx Ibuprofen [Motrin] 600 mg PO Q8H PRN #20 tablet 11/19/19 Unknown Rx traMADoL [Ultram] 50 mg PO Q6HR PRN #24 tablet 11/19/19 Unknown Rx traMADoL [Ultram 50 MG tab] 50 mg PO Q6HR PRN #30 tablet 12/20/19 Unknown Rx HYDROcodone/APAP 5-325 [Carver 1 each PO Q6HR PRN #20 tablet 01/01/20 Unknown Rx 5/325] ED Review of Systems ROS: Stated complaint: NOT EATING/BED SORES Other details as noted in HPI Comment: Unobtainable due to pts medical conditions Physical Exam - Physical Exam Vital Signs: Vital Signs 01/21/20 13:32 Temperature 98.4 F Pulse Rate 92 H Respiratory 16 Rate Blood Pressure 163/94 O2 Sat by Pulse 100 Oximetry Physical Exam: GENERAL: The patient is well-developed well-nourished. HENT: Normocephalic. Atraumatic. Patient has moist mucous membranes. EYES: Extraocular motions are intact. NECK: Supple. Trachea is midline. CHEST/LUNGS: Clear to auscultation. There is no respiratory distress noted. HEART/CARDIOVASCULAR: Regular. There is no tachycardia. ABDOMEN: Abdomen is soft, nontender. Patient has normal bowel sounds. There is no abdominal distention. SKIN: Skin is warm and dry. NEURO: The patient is awake, alert, and cooperative. The patient has no focal neurologic deficits. Normal speech. MUSCULOSKELETAL: There is no tenderness or deformity. There is no evidence of acute injury. ED Course Vital Signs 01/21/20 13:32 Temperature 98.4 F Pulse Rate 92 H Respiratory 16 Rate Blood Pressure 163/94 O2 Sat by Pulse 100 Oximetry - Consultations Consultation #1: 01/21/20 16:26 I spoke with the patient's oncologist, Dr. Mcintosh. She says that they are trying to get the patient set up for an outpatient bone marrow biopsy but otherwise there is no other imminent reason from oncology that the patient needs admission. ED Medical Decision Making - Lab Data Result diagrams: 01/21/20 14:11 01/21/20 14:11 - Medical Decision Making This patient was brought into the emergency department by her daughter for evaluation of decreased oral intake, and allegedly some bedsores. Ultimately the daughter is trying to get the patient placed in a alf as she feels she is unable to care for her at this time. Patient has a history of dementia but is currently resting comfortably without any complaints and has a pleasant demeanor. Given the concern for decreased oral intake we gave the patient some paul crackers and she ate 2 or 3 crackers without any difficulty. The patient's skin was evaluated and there are no obvious pressure ulcers or signs of cellulitis or infection. Patient's labs have been mostly unremarkable except for some mild renal insufficiency. Patient has had this in the past and does have some history of chronic kidney disease. Her vital signs been stable throughout her ED course including being afebrile. For all these reasons, the patient does not meet criteria for admission at this time. Social work/case management was consulted and saw the patient in the emergency department. She also spoke with the patient's daughter. They are being set up for some home health care assistance. The daughter did not appear interested in home health care and appears to be focused only on alf placement. The daughter has been instructed that she needs to pursue alf placement through her primary care physician or independently. However she has also been instructed to return the patient to the emergency department with any signs of distress or any further concerns and the patient will be reevaluated. Critical Care Time: No Critical care attestation.: If time is entered above; I have spent that time in minutes in the direct care of this critically ill patient, excluding procedure time. ED Disposition Clinical Impression: Decreased oral intake, Mild renal insufficiency Dementia Qualifiers: Dementia type: unspecified type Dementia behavioral disturbance: without behavioral disturbance Qualified Code(s): F03.90 - Unspecified dementia without behavioral disturbance Disposition: DC-01 TO HOME OR SELFCARE Is pt being admited?: No Condition: Stable Instructions: Dementia (ED), Impaired Kidney Function (ED) Additional Instructions: Please follow-up with the primary care physician regarding the patient's decreased oral intake and to assist you in a alf placement. The case management is setting you up for some home health care services. If she does not already have a parts runner, I have given you a referral for Dr. Redd, to follow-up regarding the mild impaired kidney function. The patient ate some paul crackers here today. I suggest trying some other meal supplementation such as Ensure. Return to the emergency department with any worsening of your symptoms or any acute distress. Referrals: HARJINDER DUVALL MD [Primary Care Provider] - 2-3 Days LAURA REDD MD [Staff Physician] - 2-3 Days Time of Disposition: 16:19
[2020-01-21 16:00] VITALS: BP 159/100
== END 2020-01-21 18:32 | disposition home or self-care (01) ==
LOC: ED 13:24
DX: N28.9 Disorder of kidney and ureter, unspecified (principal); F03.90 Unspecified dementia, unspecified severity, without behavioral disturbance, psychotic disturbance, mood disturbance, and anxiety; R63.3 Feeding difficulties; I10 Essential (primary) hypertension; E11.9 Type 2 diabetes mellitus without complications; Z90.710 Acquired absence of both cervix and uterus; Z79.899 Other long term (current) drug therapy
CPT/HCPCS: 36415; 80053; 82550; 82962; 83735; 85027; 99283